=== PATIENT | male | born 1970 | race Caucasian/White ===

== ENCOUNTER → 2020-12-04 | Day surgery (SDC) | payer BC ==
[~2020-12-04] MED LIST: ATORVASTATIN CA10 MG PO; CLARITIN-D 241 EACH PO; CYANOCOBAL1000 MCG/1 INJ; FLONASE 0.05% N16 GM; VITAMIN D21250 MCG PO
== END | disposition home or self-care (01) ==
LOC: OR 06:09
PROVIDERS: Surgery
PROC: 0DBL8ZX Excision of Transverse Colon, Via Natural or Artificial Opening Endoscopic, Diagnostic (ICD-10-PCS; principal; 2020-12-04 08:15)
DX: Z12.11 Encounter for screening for malignant neoplasm of colon (principal); D12.3 Benign neoplasm of transverse colon; E78.5 Hyperlipidemia, unspecified; N18.9 Chronic kidney disease, unspecified; N40.1 Benign prostatic hyperplasia with lower urinary tract symptoms; R35.0 Frequency of micturition; Z79.899 Other long term (current) drug therapy
CPT/HCPCS: J2704; J7120